=== PATIENT | female | born 1985 | race Two or more races ===

== ENCOUNTER → 2017-08-31 | Outpatient (CLI) | payer MEDICAID | LOC: FIMAGING 07:09 | PROVIDERS: ATTEND Obstetrics & Gynecology | DX: O44.02 Complete placenta previa NOS or without hemorrhage, second trimester (principal); O34.219 Maternal care for unspecified type scar from previous cesarean delivery; O99.212 Obesity complicating pregnancy, second trimester; E66.9 Obesity, unspecified; Z68.34 Body mass index [BMI] 34.0-34.9, adult; Z3A.30 30 weeks gestation of pregnancy ==